=== PATIENT | female | born 1980 | race Caucasian/White ===

== ENCOUNTER 2016-10-24 19:19 | Inpatient (IN) | payer BC ==
[2016-10-24] MEDS ORDERED: LACTATED RINGERS 1,000 ML IV PRN (20:32)
[2016-10-24] MEDS ORDERED: MEPIVACAINE HCL 1% MPF 30 ML SOL INFIL PRN (20:32)
[2016-10-24] MEDS ORDERED: SODIUM CHLORIDE 0.9% FLUSH 10 ML SOL IV PRN (20:32)
[2016-10-24] MEDS ORDERED: CARBOPROST 250 MCG/ML SOL IM PRN (20:32)
[2016-10-24] MEDS ORDERED: OXYTOCIN 10000 MU/ML SOL IM PRN (20:32)
[2016-10-24] MEDS ORDERED: METHYLERGONOVINE MALEATE 0.2 MG/ML SOL IM PRN (20:32)
[2016-10-24] MEDS ORDERED: FENTANYL 100MCG/2ML SOL IV PRN (20:32)
[2016-10-24] MEDS ORDERED: OXYTOCIN 10000 MU/ML SOL ONE (20:59)
[2016-10-24] MEDS ORDERED: MEPIVACAINE HCL 1% MPF 30 ML SOL ONE (20:59)
[2016-10-24] MEDS: SODIUM CHLORIDE 0.9% FLUSH 10 ML SOL IV SCH (21:48)
[2016-10-24] MEDS ORDERED: APAP/HYDROCODONE 325/5 TAB PO PRN (22:26)
[2016-10-24] MEDS ORDERED: FLEET ENEMA PR PRN (22:26)
[2016-10-24] MEDS ORDERED: TEMAZEPAM 15MG 15 MG CAP PO PRN (22:26)
[2016-10-24] MEDS ORDERED: METHYLERGONOVINE MALEATE 0.2 MG TAB PO PRN (22:26)
[2016-10-24] MEDS ORDERED: BISACODYL 10 MG SUP PR PRN (22:26)
[2016-10-24] MEDS ORDERED: WITCH HAZEL 1 EA PAD TOP PRN (22:26)
[2016-10-24] MEDS ORDERED: ACETAMINOPHEN 325 MG PO PRN (22:26)
[2016-10-24] MEDS ORDERED: BENZOCAINE/MENTHOL 1 SPR TOP PRN (22:26)
[2016-10-25] MEDS: IBUPROFEN 600 MG TAB PO PRN ×2 (05:18→19:15)
[2016-10-25] MEDS: SODIUM CHLORIDE 0.9% FLUSH 10 ML SOL IV SCH (05:19)
[2016-10-25] MEDS: DOCUSATE SODIUM 100 MG SGL PO SCH ×2 (09:04→21:41)
[2016-10-25] MEDS: MULTIVITAMIN2 1 EA TAB PO SCH (09:04)
[2016-10-26] MEDS: DOCUSATE SODIUM 100 MG SGL PO SCH (10:39)
[2016-10-26] MEDS: MULTIVITAMIN2 1 EA TAB PO SCH (10:39)
[2016-10-26 15:28] VITALS: BP 112/73; PULSE 68; RESP 16; TEMP 97.7; O2SAT 96
== END 2016-10-26 15:20 | disposition home or self-care (01) | DRG 560 ==
LOC: OBSVTOIN 19:19 → OB 19:19
PROVIDERS: ADMIT Emergency Medicine; ATTEND Emergency Medicine
PROC: 10E0XZZ Delivery of Products of Conception, External Approach (ICD-10-PCS; principal; 2016-10-24)
DX: O77.9 Labor and delivery complicated by fetal stress, unspecified (principal); O70.0 First degree perineal laceration during delivery; Z3A.40 40 weeks gestation of pregnancy; Z37.0 Single live birth
CPT/HCPCS: 36415; 59025; 85018; J0670; J2210; J2590